=== PATIENT | male | born 2000 | race African-American/Black ===

== ENCOUNTER 2018-09-09 14:33 | Emergency (ER) | payer OTHER ==
[~2018-09-09] VITALS: Ht 190.5 cm; Wt 72.6 kg
[~2018-09-09 14:33] MED LIST: AMOXICILLIN 50500 M1 PO; DAY TIME COLD-237 ML PO; MUCINEX TA600 MG/TA2 PO; NYQUIL D COLD295 ML PO
[2018-09-09] MEDS ORDERED: PREDNISONE 20 M20 MG PO (16:19)
[2018-09-09] MEDS ORDERED: VENTOLIN HFA 1818 GM INH (16:19)
[2018-09-09 16:49] VITALS: BP 130/70
== END 2018-09-09 16:42 | disposition home or self-care (01) ==
LOC: ER 14:33
DX: J45.901 Unspecified asthma with (acute) exacerbation (principal)

== ENCOUNTER 2018-10-25 20:12 | Emergency (ER) | payer BC, OTHER ==
[~2018-10-25] VITALS: Ht 190.5 cm; Wt 80.3 kg
[~2018-10-25 20:12] MED LIST changes: +PREDNISONE 20 M20 MG PO; +VENTOLIN HFA 1818 GM INH
[2018-10-25] MEDS ORDERED: PROMETH-CODEIN 65 ML PO (21:23)
[2018-10-25] MEDS ORDERED: DOXYCYCLINE 10100 MG PO (21:23)
[2018-10-25 21:33] VITALS: BP 130/68
== END 2018-10-25 21:33 | disposition home or self-care (01) ==
LOC: ER 20:12 → EDBD 20:12 → ER 21:33
DX: R05 Cough (principal); R50.9 Fever, unspecified; R06.02 Shortness of breath; J02.9 Acute pharyngitis, unspecified; R09.81 Nasal congestion; J45.909 Unspecified asthma, uncomplicated

== ENCOUNTER 2020-04-02 13:18 | Emergency (ER) | payer OTHER ==
[~2020-04-02] VITALS: Ht 190.5 cm; Wt 74.8 kg
[~2020-04-02 13:18] MED LIST changes: +DOXYCYCLINE 10100 MG PO; +PROMETH-CODEIN 65 ML PO
[2020-04-02 14:35] LABS: ABSOLUTE NEUTROPHILS 4.1 thou/uL (1.4-8.2); BASOPHILS 0.2 % (0.0-2.0); EOSINOPHILS 2.9 % (0.0-3.0); HEMATOCRIT 41.4 % (42.0-52.0); HEMOGLOBIN 13.5 gm/dL (14.0-18.0); MCH 27.9 pg (26.0-34.0); MCHC 32.7 g/dL (28.0-37.0); MCV 85.3 fL (80.0-100.0); MONOCYTES 9.8 % (1.0-8.0); PLATELET COUNT 194 thou/uL (150-400); POLYS 72.1 % (36.0-66.0); RBC 4.85 mil/uL (4.50-6.00); RDW 13.1 % (10.5-14.5); WBC 5.6 thou/uL (4.0-11.0)
[2020-04-02 14:44] LABS: CALCIUM 9.1 mg/dL (8.5-10.1); CREATININE 1.2 mg/dL (0.7-1.3); POTASSIUM 3.8 mmol/L (3.5-5.1)
[2020-04-02 14:49] LABS: ALBUMIN 4.4 g/dL (3.4-5.0); TOTAL BILIRUBIN 0.5 mg/dL (0.2-1.0)
--- NOTE | 2020-04-02 15:39 | EKG ---
[facility] [place] [address] ELECTROCARDIOGRAM REPORT Name: CARMENZA ROCA Room #: PRE M.R.#: [id number] Admission: Attend Phys: Discharge: Date of : [birth year] Report #: [id number] THIS REPORT FOR: cc: BEHZAD Gilmore family physician/PCP Nilay Larios MD [facility] ~ THIS REPORT FOR: //name// [facility] ED Test Date: 2020-04-02 Test Time: 14:25:13 Pat Name: CARMENZA ROCA Department: Room: Gender: Paralegal: Issac : 2000 Requested By: Matthias Loomis Order Number: [id number] MD: Nilay Larios Measurements Intervals [place] Rate: 61 P: 63 CO: 128 QRS: 53 QRSD: 93 T: -3 QT: 380 QTc: 383 Interpretive Statements Sinus rhythm Borderline T wave abnormalities J Point elev, probable normal early repol pattern No previous ECG available for comparison Electronically Signed On 04-02-2020 15:38:52 CDT by Nilay Larios [email or web address] <ELECTRONICALLY SIGNED> By: Nilay Larios MD, FACC 04/02/20 1538 1425 1425 Nilay Larios MD, FACC /EPI
[2020-04-02] MEDS ORDERED: ULTRAM 50MG TAB50 MG PO (15:56)
[2020-04-02] MEDS ORDERED: PREDNISONE 20 M20 M1 PO (15:56)
[2020-04-02 16:15] VITALS: BP 110/74
== END 2020-04-02 16:13 | disposition home or self-care (01) ==
LOC: ER 13:18
PROVIDERS: Physician Assistant
DX: R07.89 Other chest pain (principal); J45.909 Unspecified asthma, uncomplicated; Z79.899 Other long term (current) drug therapy; Z20.828 Contact with and (suspected) exposure to other viral communicable diseases

== ENCOUNTER 2020-09-04 11:38 | Emergency (ER) | payer OTHER ==
[~2020-09-04] VITALS: Ht 188 cm; Wt 74.8 kg
[~2020-09-04 11:38] MED LIST changes: +PREDNISONE 20 M20 M1 PO; +ULTRAM 50MG TAB50 MG PO
[2020-09-04 12:29] LABS: HEMATOCRIT 39.9 % (42.0-52.0); MCH 27.6 pg (26.0-34.0); MCHC 32.5 g/dL (28.0-37.0); MCV 85.1 fL (80.0-100.0); RBC 4.69 mil/uL (4.50-6.00)
[2020-09-04 12:43] LABS: CALCIUM 9.1 mg/dL (8.5-10.1); POTASSIUM 4.1 mmol/L (3.5-5.1)
[2020-09-04 12:48] LABS: URINE BILIRUBIN NEGATIVE (Negative); URINE BLOOD NEGATIVE (Negative); URINE CLARITY CLEAR; URINE COLOR YELLOW; URINE GLUCOSE-RANDOM* NEGATIVE (Negative); URINE KETONES NEGATIVE (Negative); URINE LEUKOCYTES-REFLEX NEGATIVE (Negative); URINE NITRITE-REFLEX NEGATIVE (Negative); URINE PROTEIN (DIPSTICK) NEGATIVE (Negative); URINE SPECIFIC GRAVITY 1.025 (1.005-1.035); URINE UROBILINOGEN 0.2 E.U./dl (0.2-1.0)
[2020-09-04] MEDS ORDERED: LEVSIN0.125 MG PO (12:59)
[2020-09-04 13:10] VITALS: BP 117/52
== END 2020-09-04 13:10 | disposition home or self-care (01) ==
LOC: ER 11:38
PROVIDERS: Nurse Practitioner Family
DX: R19.7 Diarrhea, unspecified (principal); J45.909 Unspecified asthma, uncomplicated; Z79.899 Other long term (current) drug therapy

== ENCOUNTER 2021-02-21 09:00 | Emergency (ER) | payer OTHER ==
[~2021-02-21] VITALS: Ht 190.5 cm; Wt 66.7 kg
[~2021-02-21 09:00] MED LIST changes: +LEVSIN0.125 MG PO
[2021-02-21 10:49] VITALS: BP 125/86
== END 2021-02-21 10:55 | disposition home or self-care (01) ==
LOC: ER 09:00
DX: M79.605 Pain in left leg (principal); J45.909 Unspecified asthma, uncomplicated

== ENCOUNTER 2021-06-18 09:31 | Emergency (ER) | payer OTHER ==
[~2021-06-18] VITALS: Ht 188 cm; Wt 70.3 kg
[2021-06-18 09:48] VITALS: BP 131/63
== END 2021-06-18 11:16 | disposition home or self-care (01) ==
LOC: ER 09:31
DX: J06.9 Acute upper respiratory infection, unspecified (principal); Z20.822 Contact with and (suspected) exposure to COVID-19; J45.909 Unspecified asthma, uncomplicated